=== PATIENT | male | born 1985 | race Caucasian/White ===

== ENCOUNTER 2025-02-02 15:58 | Emergency (ER) | payer OTHER ==
[~2025-02-02] VITALS: Ht 175.3 cm; Wt 75.0 kg
[2025-02-02 16:08] VITALS: BP 114/64; TEMP 36.8; O2SAT 98
[2025-02-02 16:14] VITALS: PULSE 96; RESP 18; O2SAT 99
[2025-02-02] MEDS ORDERED: TETANUS, DIPHTHERIA, PERTUSSIS VAC/PF 0.5ML (>10YR OLD) IM ONE (19:00)
== END 2025-02-02 18:57 | disposition home or self-care (01) ==
LOC: ER 15:58
DX: Z00.00 Encounter for general adult medical examination without abnormal findings (principal); Z53.21 Procedure and treatment not carried out due to patient leaving prior to being seen by health care provider
CPT/HCPCS: 99281

== ENCOUNTER 2025-02-02 19:09 | Emergency (ER) | payer OTHER ==
[2025-02-02] MEDS: TETANUS, DIPHTHERIA, PERTUSSIS VAC/PF 0.5ML (>10YR OLD) IM ONE (19:49)
[2025-02-02 20:00] VITALS: BP 127/73; PULSE 67; RESP 16; TEMP 36.9; O2SAT 99
== END 2025-02-02 20:05 | disposition home or self-care (01) ==
LOC: ER 19:09
DX: Z23 Encounter for immunization (principal); Z59.01 Sheltered homelessness
CPT/HCPCS: 90471; 90715; 99283